=== PATIENT | male | born 1985 | race Caucasian/White ===

== ENCOUNTER → 2017-02-18 | Outpatient (REF) | payer OTHER ==
[2017-02-18 11:49] LABS: MEAN CORPUSCULAR HEMOGLOBIN 29.7 pg (27.0-33.0); MEAN CORPUSCULAR VOLUME 79.8 fl (80.0-96.0); RED CELL DISTRIBUTION WIDTH 13.2 % (11.5-14.5); WHITE BLOOD COUNT 7.3 K/mm3 (4.0-10.0)
[2017-02-18 11:50] LABS: MEAN CORPUSCULAR HGB CONC 37.2 g/dl (32.0-36.5)
[2017-02-18 12:12] LABS: ALBUMIN 3.8 GM/DL (3.2-5.2); ALKALINE PHOSPHATASE 103 U/L (45-117); BILIRUBIN,TOTAL 1.1 MG/DL (0.2-1.0); CALCIUM LEVEL 8.1 MG/DL (8.5-10.1); CARBON DIOXIDE LEVEL 27 MEQ/L (21-32); CHLORIDE LEVEL 95 MEQ/L (98-107); CREATININE FOR GFR 0.59 MG/DL (0.70-1.30); GLUCOSE, FASTING 326 MG/DL (70-105); POTASSIUM SERUM 4.2 MEQ/L (3.5-5.1); SODIUM LEVEL 131 MEQ/L (136-145); TRIGLYCERIDES LEVEL 3454 MG/DL (<150)
[2017-02-18 13:02] LABS: AST/SGOT 27 U/L (15-37); BLOOD UREA NITROGEN 11 MG/DL (7-18); CHOLESTEROL LEVEL 260 MG/DL (<200); TOTAL PROTEIN 7.1 GM/DL (6.4-8.2)
[2017-02-18 13:20] LABS: ALT/SGPT 40 U/L (12-78)
[2017-02-18 14:51] LABS: ANION GAP 9 MEQ/L (8-16)
[2017-02-18 14:53] LABS: ALBUMIN/GLOBULIN RATIO 1.15 (1.00-1.93)
== END ==
LOC: M SFHCCLAY 08:36
PROVIDERS: ATTEND Nurse Practitioner Family
DX: E11.65 Type 2 diabetes mellitus with hyperglycemia (principal); E78.4 Other hyperlipidemia; E55.9 Vitamin D deficiency, unspecified

== ENCOUNTER → 2017-07-09 | Outpatient (REF) | payer OTHER ==
[2017-07-09 18:23] LABS: CHOLESTEROL LEVEL 314 MG/DL (<200); TRIGLYCERIDES LEVEL 713 MG/DL (<150)
== END ==
LOC: M SFHCCLAY 13:17
PROVIDERS: ATTEND Nurse Practitioner Family
DX: E11.65 Type 2 diabetes mellitus with hyperglycemia (principal); E78.4 Other hyperlipidemia; E55.9 Vitamin D deficiency, unspecified

== ENCOUNTER 2017-11-15 17:09 | Emergency (ER) | payer SELFPAY, MEDICAID, OTHER ==
[2017-11-15] MEDS: AMOXICILLIN 500 MG CAP PO (17:55)
[2017-11-15 18:10] LABS: INFLUENZA A AMPLIFICATION POSITIVE (NEGATIVE); INFLUENZA B AMPLIFICATION NEGATIVE (NEGATIVE)
== END 2017-11-15 18:28 | disposition home or self-care (01) ==
LOC: M ED 17:09
DX: J02.0 Streptococcal pharyngitis (principal); E11.9 Type 2 diabetes mellitus without complications; F99 Mental disorder, not otherwise specified; E78.00 Pure hypercholesterolemia, unspecified; Z79.4 Long term (current) use of insulin; Z79.899 Other long term (current) drug therapy
CPT/HCPCS: 87502